=== PATIENT | male | born 1990 | race Hispanic/Latino ===

== ENCOUNTER 2017-02-25 19:42 | Emergency (ER) | payer SELFPAY ==
[~2017-02-25] VITALS: Ht 172.7 cm; Wt 91.2 kg
[~2017-02-25 19:42] MED LIST: BUTALBITAL-APA1 EACH PO; NAPROSYN500 MG PO; NOHOMEMEDS; PROMETHAZINE HC25 M1 PO
[2017-02-25 20:16] LABS: ADD MIUA? YES; BILIRUBIN NEGATIVE; BLOOD LARGE; COLOR YELLOW ((YELLOW)); GLUCOSE (STRIP) NEGATIVE; KETONES NEGATIVE; LEUKOCYTES NEGATIVE; NITRITE NEGATIVE; PROTEIN (STRIP) NEGATIVE; SPECIFIC GRAVITY 1.021 (1.000-1.030)
[2017-02-25 20:44] LABS: HEMATOCRIT 46.5 % (38.0-50.0); MCH 30.7 PG (29.0-34.0); MCHC 34.8 G/DL (30.0-36.0); MCV 88.1 FL (86-99); MEAN PLAT.VOLUME 10.9 uM^3 (9.0-12.4); PLATELET COUNT 273 K/uL (156-360); RBC DIS.WIDTH-CV 12.3 % (11.8-14.6); RBC DIS.WIDTH-SD 39.8 % (39-53); RED BLOOD COUNT 5.28 M/uL (4.00-5.50); WHITE BLOOD COUNT 11.1 K/uL (4.1-10.2)
[2017-02-25 20:54] LABS: BACTERIA RARE /HPF; EPITHELIAL CELLS RARE /HPF; MUCUS 2+ /LPF; RED BLOOD CELLS 20-30 /HPF (0-5); UCUL ADDED? NO; WHITE BLOOD CELLS RARE /HPF (0-5)
[2017-02-25 20:55] LABS: AMORPHOUS URATES CRYSTALS 1+; CASTS NONE SEEN /LPF; CRYSTALS PRESENT
[2017-02-25 20:59] LABS: CHLORIDE 107 mEq/L (99-109); POTASSIUM 3.9 mEq/L (3.7-5.4); SODIUM 138 mEq/L (136-147)
[2017-02-25 21:01] LABS: GLUCOSE 94 mg/dL (70-99)
[2017-02-25 21:02] LABS: ANION GAP 9 MEQ/L (2-14)
[2017-02-25 21:03] LABS: TOTAL BILIRUBIN 0.5 mg/dL (0.0-1.0)
[2017-02-25 21:04] LABS: ALKALINE PHOSPHATASE 75 IU/L (3-129)
[2017-02-25 21:05] LABS: GFR ESTIMATE (CALCULATED) > 59 mL/min/
[2017-02-25 21:06] LABS: UREA NITROGEN (BUN) 17 mg/dL (9-23)
[2017-02-26] MEDS ORDERED: ZOFRAN ODT4 MG PO (01:10)
[2017-02-26] MEDS ORDERED: PERCOCET 5/31 TABLET PO (01:10)
[2017-02-26 01:15] VITALS: BP 150/84
== END 2017-02-26 01:15 | disposition home or self-care (01) ==
LOC: EME 19:42
DX: R31.9 Hematuria, unspecified (principal); R10.31 Right lower quadrant pain; D72.829 Elevated white blood cell count, unspecified; F17.200 Nicotine dependence, unspecified, uncomplicated
CPT/HCPCS: 74176; 80053; 81003; 85027; 99281; 99284; J1885; J2405; J7030

== ENCOUNTER 2017-09-20 13:58 | Emergency (ER) | payer OTHER ==
[~2017-09-20] VITALS: Ht 172.7 cm; Wt 96.3 kg
[~2017-09-20 13:58] MED LIST changes: +PERCOCET 5/31 TABLET PO; +ZOFRAN ODT4 MG PO
[2017-09-20 15:46] VITALS: BP 131/83
== END 2017-09-20 15:48 | disposition home or self-care (01) ==
LOC: EME 13:58
DX: M25.532 Pain in left wrist (principal)
CPT/HCPCS: 73110